=== PATIENT | female | born 1955 | race Caucasian/White ===

== ENCOUNTER → 2016-09-30 | Outpatient (CLI) | payer OTHER ==
[~2016-09-30] MED LIST: ATV/1 PO; CALCTAB65 PO; HYOS1TAB PO; IMD/2 PO; MTR600X PO; MULT-506 PO
--- NOTE | 2016-09-30 14:42 | MAMMOGRAPHY REPORT ---
BILATERAL DIGITAL SCREENING MAMMOGRAM WITH CAD: 09/30/2016 CLINICAL HISTORY: Routine screening. Patient has no complaints. TECHNIQUE: Bilateral CC and MLO views were obtained. Current study was also evaluated with a Comput er Aided Detection (CAD) system. COMPARISON: Comparison is made to exams dated: 09/27/2015 mammogram, 09/24/2014 mammogram, 09/22/2013 m ammogram, 09/21/2012 mammogram, 09/09/2011 mammogram, and 09/03/2010 mammogram - [facility] enter. BREAST COMPOSITION: There are scattered areas of fibroglandular density in both breasts. FINDINGS: There are stable bilateral benign coarse calcifications and a few punctate benign-appearin g microcalcifications in the breasts. No suspicious mass, architectural distortion or cluster of ne w, suspicious microcalcifications is seen. IMPRESSION: ACR BI-RADS CATEGORY 1: NEGATIVE There is no mammographic evidence of malignancy. A 1 year screening mammogram is recommended. The p atient will receive written notification of the results. Approximately 10% of breast cancers are not detected with mammography. A negative mammographic repor t should not delay biopsy if a clinically suggestive mass is present. Lizette Barrientos M.D. ay/:09/30/2016 09:47:52 Cafeteria Assistant: Valencia VITAL(Dagoberto)(M), [facility] letter sent: Normal 1/2 BI-RADS Code: ACR BI-RADS Category 1: Negative
== END | disposition home or self-care (01) ==
LOC: C.MAMM 09:26
PROVIDERS: ATTEND Obstetrics & Gynecology
DX: Z12.31 Encounter for screening mammogram for malignant neoplasm of breast (principal)

== ENCOUNTER → 2016-11-18 | Outpatient (CLI) | payer OTHER ==
[2016-11-18 12:12] LABS: BASO % 0.2 %; BASO ABS # 0.01 K/uL (0-0.2); COMPLETE YES; EOS % 1.3 %; HEMATOCRIT 42.3 % (37-47); IG% 0.2 %; LYMPH % 41.9 %; LYMPH ABS # 1.98 K/uL (1.2-3.4); MEAN CORPUSCULAR HGB CONC 31.9 g/dl (32-36); MEAN PLATELET VOLUME 10.9 fL (7.4-10.4); MONO % 10.8 %; NEUT % 45.6 %; PLATELET COUNT 212 K/uL (130-400); RED BLOOD COUNT 4.36 M/uL (4.2-5.4); WHITE BLOOD COUNT 4.73 K/uL (4.8-10.8)
[2016-11-18 12:23] LABS: ALT/SGPT 47 U/L (12-78); BLOOD UREA NITROGEN 23 mg/dl (7-18); BUN/CREATININE RATIO 36.3 (10-20); CARBON DIOXIDE 29 mmol/L (21-32); CHLORIDE 108 mmol/L (98-107); CHOLESTEROL 168 mg/dl (0-200); CREATININE 0.62 mg/dl (0.60-1.20); GLUCOSE 95 mg/dl (70-99); POTASSIUM 4.3 mmol/L (3.5-5.1); SODIUM 142 mmol/L (136-145); TRIGLYCERIDES 46 mg/dl (0-150); VERY LOW DENSITY LIPOPROT CALC 9 mg/dl
[2016-11-18 12:25] LABS: ALB/GLOB RATIO 1.1 (0.9-2); ALKALINE PHOSPHATASE 64 U/L (45-117); AST/SGOT 34 U/L (15-37); CHOLESTEROL/HDL RATIO 2.4; HDL CHOLESTEROL 69 mg/dl; LDL CHOLESTEROL CALCULATED 90 mg/dl
[2016-11-18 12:28] LABS: CALCIUM 8.9 mg/dl (8.5-10.1)
== END | disposition home or self-care (01) ==
LOC: C.LABBFT 07:56
PROVIDERS: ATTEND Internal Medicine
DX: Z00.00 Encounter for general adult medical examination without abnormal findings (principal); M85.80 Other specified disorders of bone density and structure, unspecified site; K58.9 Irritable bowel syndrome, unspecified; L82.1 Other seborrheic keratosis; Z86.2 Personal history of diseases of the blood and blood-forming organs and certain disorders involving the immune mechanism

== ENCOUNTER → 2017-06-24 | Outpatient (CLI) | payer OTHER | END | disposition home or self-care (01) | LOC: C.PATHSPEC 16:41 | PROVIDERS: ATTEND Dermatology | DX: D22.5 Melanocytic nevi of trunk (principal) ==

== ENCOUNTER → 2017-09-27 | Outpatient (CLI) | payer OTHER | END | disposition home or self-care (01) | LOC: C.PATHSPEC 18:19 | PROVIDERS: ATTEND Dermatology | DX: D23.71 Other benign neoplasm of skin of right lower limb, including hip (principal) ==

== ENCOUNTER → 2017-10-05 | Outpatient (CLI) | payer OTHER ==
--- NOTE | 2017-10-05 15:25 | MAMMOGRAPHY REPORT ---
BILATERAL DIGITAL SCREENING MAMMOGRAM TOMOSYNTHESIS WITH CAD: 10/05/2017 CLINICAL HISTORY: Routine screening. Patient has no complaints. TECHNIQUE: Breast tomosynthesis in addition to standard 2D mammography was performed. Current study was also evaluated with a Computer Aided Detection (CAD) system. COMPARISON: Comparison is made to exams dated: 09/30/2016 mammogram, 09/27/2015 mammogram, 09/24/2014 debby mogram, 09/22/2013 mammogram, 09/27/2012 ultrasound, and 09/27/2012 mammogram - [facility] er. BREAST COMPOSITION: There are scattered areas of fibroglandular density in both breasts. FINDINGS: There is a newly visualized 5 mm circumscribed mass in the approximate 2:00 to 3:00 cardiac surgeon ior left breast for which additional targeted ultrasound and possible additional mammographic views a re recommended. There are a few scattered benign rounded rim calcifications bilaterally. No other suspicious mass, a rchitectural distortion or cluster of microcalcifications is seen. IMPRESSION: ACR BI-RADS CATEGORY 0: INCOMPLETE EVALUATION: NEED ADDITIONAL IMAGING EVALUATION The newly visualized 5 mm circumscribed mass in the 2:00 - 3:00 left breast needs additional evaluati on. The patient will be called to schedule an appointment. Approximately 10% of breast cancers are not detected with mammography. A negative mammographic report should not delay biopsy if a clinically suggestive mass is present. Lizette Barrientos M.D. ay/:10/05/2017 14:06:25 Contract Programmer: Mar VITAL(Dagoberto)(Marvin), [facility] letter sent: Addl Imaging 0 BI-RADS Code: ACR BI-RADS Category 0: Incomplete Evaluation: Need Additional Imaging Evaluation
== END | disposition home or self-care (01) ==
LOC: C.MAMM 09:12
PROVIDERS: ATTEND Obstetrics & Gynecology
DX: Z12.31 Encounter for screening mammogram for malignant neoplasm of breast (principal); N63.23 Unspecified lump in the left breast, lower outer quadrant

== ENCOUNTER → 2017-10-11 | Outpatient (CLI) | payer OTHER ==
--- NOTE | 2017-10-12 07:48 | MAMMOGRAPHY REPORT ---
ULTRASOUND OF LEFT BREAST: 10/11/2017 CLINICAL HISTORY: 62-year-old woman called back from screening mammography for a newly visualized 5 m m focal asymmetry in the 3:00 posterior left breast. Family history of breast cancer = maternal nishia t great aunt. COMPARISON: Comparison is made to exams dated: 09/22/2013 mammogram, 09/24/2014 mammogram, 09/27/2015 ma mmogram, 09/30/2016 mammogram, 10/05/2017 mammogram, and 10/11/2017 mammogram - [facility] ter. FINDINGS: Targeted ultrasound was performed in the lateral left breast 2:00 through 4:00 axes. In th e 3:00 axis, 9 cm from the nipple, there is a teardrop versus oval gently lobulated parallel oriented hypoechoic, partially circumscribed mass. No posterior shadowing, possible minimal posterior acoust ic enhancement appreciated. It measures 5.5 x 3.0 x 4.4 mm and likely correlates with the newly visu alized mammographic focal asymmetry. The patient reported tenderness while scanning over this lesion as well. Although this could represent a cyst, definitive characterization with ultrasound-guided c yst aspiration versus core needle biopsy is recommended, including post procedure mammograms given th at this was a new mammographic finding. IMPRESSION: ACR BI-RADS CATEGORY 4: SUSPICIOUS - FOLLOW-UP RECOMMENDED Ultrasound-guided cyst aspiration versus core needle biopsy is recommended for an indeterminate hypoe choic solid versus cystic 5 mm mass in the 3:00 left breast, 9 cm from the nipple, thought to correla te with the newly visualized mammographic focal asymmetry. These results and recommendations were discussed with the patient at the time of the exam. She tenta tively scheduled the procedure prior to leaving our department. Lizette Barrientos M.D. ay/:10/11/2017 14:00:34 Pantograph Ii Engraver: Ricci VITAL(Dagoberto)(Marvin), [facility] letter sent: Abnormal 4/5 BI-RADS Code: ACR BI-RADS Category 4: Suspicious
== END | disposition home or self-care (01) ==
LOC: C.MAMM 13:35
PROVIDERS: ATTEND Obstetrics & Gynecology
DX: N63.21 Unspecified lump in the left breast, upper outer quadrant (principal); N64.89 Other specified disorders of breast

== ENCOUNTER → 2017-10-19 | Outpatient (CLI) | payer OTHER ==
--- NOTE | 2017-10-19 13:09 | Discharge Instructions ---
Discharge Instructions Procedure Procedure Date: Oct 19, 2017. Reason for visit: Left Mass. Discharge Discharge Date: Oct 19, 2017. Discharge Diagnosis: post left breast ultrasound guided cyst aspiration Instructions Activity Recommendations: No limitations Return to School/Work: no limitations Recommended Home Diet: No Limitations Provider Instructions: ACTIVITY RECOMMENDATIONS: * Rest today. * Resume regular activity in one day. MEDICATIONS: * May take Tylenol or Ibuprofen as needed for pain. DIET: * Resume previous diet. SPECIAL CARE INSTRUCTIONS: Call your doctor if: * Temperature above 101 degrees F. * Pain not relieved by pain medicine ordered. * Increased drainage or redness from incision. * Increasing chest pain or shortness of breath. * Notify your doctor with any questions or concerns. * If you have specific questions or concerns for Breast Radiology, please call us at during normal business hours or Dr. Barrientos after hours at . FOLLOW UP VISIT: Follow-up with Referring Physician as scheduled. Allergies Coded Allergies: No Known Allergies (Unverified , 04/20/14) Niall Grady Recommendations: Call your doctor if: * Temperature above 101 degrees * Pain not relieved by pain medicine ordered * There is increased drainage or redness from any incision * You have any unanswered questions or concerns. Your Doctors Instructions noted above were prepared by provider Lizette Barrientos. Patient Signature Section: Patient Instructions Signature Page Raya Aiken Patient (or Guardian) Signature/Date: I have read and understand the instructions given to me by my caregivers. Caregiver/RN/Doctor Signature/Date: The above-named patient and/or guardian has received patient instructions on this date. + Original Patient Signature Page (only) stays with chart. Please make copy for patient.
--- NOTE | 2017-10-19 14:23 | MAMMOGRAPHY REPORT ---
UNILATERAL LEFT DIGITAL DIAGNOSTIC MAMMOGRAM TOMOSYNTHESIS: 10/19/2017 CLINICAL HISTORY: Status post ultrasound-guided aspiration to resolution of a 5 mm cyst in the 3:00 l eft breast. Please refer to the report from left breast ultrasound-guided cyst aspiration performed at the same t mary for full detail. IMPRESSION: Please refer to the report from left breast ultrasound-guided cyst aspiration performed at the same t mary for full detail. Approximately 10% of breast cancers are not detected with mammography. A negative mammographic report should not delay biopsy if a clinically suggestive mass is present. Lizette Barrientos M.D. ay/:10/19/2017 13:08:36 Harvesting Supervisor: Alisson ALVARADO)(Marvin), [facility] BI-RADS Code: n/a
--- NOTE | 2017-10-20 15:28 | MAMMOGRAPHY REPORT ---
ASPIRATION LEFT BREAST: 10/19/2017 CLINICAL HISTORY: Patient presents for ultrasound-guided cyst aspiration versus core biopsy of an ind eterminate hypoechoic solid versus cystic 5 mm mass in the 3:00 left breast. She was initially betancur d back from screening for a 5 mm nodular asymmetry in the left upper outer quadrant posteriorly. COMPARISON: Comparison is made to exams dated: 09/22/2013 mammogram, 09/24/2014 mammogram, 09/27/2015 ma mmogram, 09/30/2016 mammogram, 10/05/2017 mammogram, and 10/11/2017 ultrasound - [facility] nter. PATIENT CONSENT: After explaining the risks, benefits and alternatives of the procedure to the patien t, informed consent was obtained verbally and in writing. Specific risks include: bleeding, infection , metal allergy, medication reaction, puncture of adjacent structure, nontarget biopsy, sampling erro r and pain. A time out was preformed and the left breast was confirmed as the site for cyst aspirati on versus core biopsy. PROCEDURE DESCRIPTION: First, repeat targeted ultrasound was performed in the slightly lateral left breast including the 3:00 axis. In the 3:00 left breast approximately 9 cm from the nipple, there is an oval parallel circumscribed nearly anechoic cystic-appearing mass corresponding with the previous ly identified sonographic mass. It appears more cystic today, and attempt will first be made for ult rasound-guided cyst aspiration. The skin of the left breast was cleansed with Betadine and sterile drapes were placed. 1% buffered l idocaine with and without epinephrine was administered as local anesthesia subcutaneously and intrapa renchymally, surrounding the cystic appearing mass. A 22-gauge needle was advanced into the mass and aspiration was performed, and the mass resolved completely, confirming cystic nature. The fluid was clear and straw-colored (less than 1 cc) and sent to the cytology department for cytologic analysis. Postprocedure left CC and MLO 2D and tomosynthesis images were obtained. There is resolution of the mammographic mass as well, confirming mammographicsonographic correlation and also confirming benign ity. As long as cytology results yielded benign cyst contents, would recommend routine screening debby mography in 1 year. IMPRESSION: ASPIRATION Status post aspiration to resolution of a benign 5 mm cyst in the 3:00 left breast. The postprocedur e mammograms demonstrate resolution of the mammographic mass as well, confirming mammographicsonogra phic correlation. Pending benign cytology results, would recommend return to annual screening mammog siva schedule. The patient will receive notification of the pathology results from her referring physician. Lizette Barrientos M.D. ay/:10/19/2017 14:27:03 Printing Table Hand: Alisson ALVARADO)(Marvin), [facility]
== END | disposition home or self-care (01) ==
LOC: C.MAMM 12:28
PROVIDERS: ATTEND Obstetrics & Gynecology
DX: R92.8 Other abnormal and inconclusive findings on diagnostic imaging of breast (principal); N63.20 Unspecified lump in the left breast, unspecified quadrant